=== PATIENT | male | born 1940 | race Caucasian/White ===

== ENCOUNTER 2016-12-23 14:51 | Inpatient (IN) | payer OTHER ==
[2016-12-23 14:57] VITALS: BMI 30.9
--- NOTE | 2016-12-23 15:12 | PDOC ---
History of Present Illness <Tom Guthrie - Last Filed: 12/23/16 15:10> - General History Source: Patient Exam Limitations: No Limitations - History of Present Illness Initial Comments: 12/23/16 15:30 Patient is a 76 year old male with pmhx of HTN, HLD and heart stent who presents to the ED with abdominal pain and nausea. Patient states that he woke up in the morning and started experiencing abdominal pain at the left sided abdomen, radiating to the left flank, 8/10 in severity. Patient reports normal bowel movement today. Patient notes that he did not take anything for the pain. He denies any past abd sx. <Kayy Erwin - Last Filed: 12/23/16 16:40> <Ana Mckay - Last Filed: 12/23/16 20:18> - General Chief Complaint: Pain, Acute Stated Complaint: ABD PAIN Time Seen by Provider: 12/23/16 15:10 Past History - Past Medical History Cardiac Disorders: Yes (STENTSX2) HTN: Yes Hypercholesterolemia: Yes - Surgical History Cardiac Surgery: Yes (STENTSX2) - Psycho/Social/Smoking Cessation Hx Suicidal Ideation: No Smoking History: Former smoker Have you smoked in the past 12 months: No Information on smoking cessation initiated: No <Tom Guthrie - Last Filed: 12/23/16 15:10> <Kayy Erwin - Last Filed: 12/23/16 16:40> <Ana Mckay - Last Filed: 12/23/16 20:18> - Past Medical History Allergies/Adverse Reactions: Allergies Allergy/AdvReac Type Severity Reaction Status Date / Time No Known Allergies Allergy Verified 12/23/16 14:53 Home Medications: Ambulatory Orders Unobtainable [Unobtainable] 12/23/16 Review of Systems - Review of Systems Able to Perform ROS?: Yes Comments:: 12/23/16 15:30 GENERAL/CONSTITUTIONAL: No fever or chills. No weakness. HEAD, EYES, EARS, NOSE AND THROAT: No change in vision. No ear pain or discharge. No sore throat. CARDIOVASCULAR: No chest pain or shortness of breath. RESPIRATORY: No cough, wheezing, or hemoptysis. GASTROINTESTINAL: +abdominal pain, nausea. No vomiting, diarrhea or constipation. GENITOURINARY: +left flank pain. No dysuria, frequency, or change in urination. MUSCULOSKELETAL: No joint or muscle swelling or pain. No neck or back pain. SKIN: No rash NEUROLOGIC: No headache, vertigo, loss of consciousness, or change in strength/ sensation. ENDOCRINE: No increased thirst. No abnormal weight change. HEMATOLOGIC/LYMPHATIC: No anemia, easy bleeding, or history of blood clots. ALLERGIC/IMMUNOLOGIC: No hives or skin allergy. <Kayy Erwin - Last Filed: 12/23/16 16:40> *Physical Exam - Vital Signs Last Vital Signs Temp Pulse Resp BP Pulse Ox 98.3 F 74 19 147/77 97 12/23/16 14:53 12/23/16 14:53 12/23/16 14:53 12/23/16 14:53 12/23/16 14:53 <Tom Guthrie - Last Filed: 12/23/16 15:10> - Vital Signs Last Vital Signs Temp Pulse Resp BP Pulse Ox 98.3 F 74 19 147/77 97 12/23/16 14:53 12/23/16 14:53 12/23/16 14:53 12/23/16 14:53 12/23/16 14:53 - Physical Exam Comments: 12/23/16 15:31 GENERAL: Awake, alert, and fully oriented, in no acute distress HEAD: No signs of trauma EYES: PERRLA, EOMI, sclera anicteric, conjunctiva clear ENT: Auricles normal inspection, hearing grossly normal, nares patent, oropharynx clear without exudates. Moist mucosa NECK: Normal ROM, supple, no lymphadenopathy, JVD, or masses LUNGS: Breath sounds equal, clear to auscultation bilaterally. No wheezes, and no crackles HEART: Regular rate and rhythm, normal S1 and S2, no murmurs, rubs or gallops ABDOMEN: +left sided rebounded tenderness with involuntary guarding. Soft, normoactive bowel sounds. EXTREMITIES: Normal range of motion, no edema. No clubbing or cyanosis. No cords, erythema, or tenderness NEUROLOGICAL: Cranial nerves II through XII grossly intact. Normal speech, normal gait SKIN: Warm, Dry, normal turgor, no rashes or lesions noted. <Kayy Erwin - Last Filed: 12/23/16 16:40> - Vital Signs Last Vital Signs Temp Pulse Resp BP Pulse Ox 98.3 F 74 19 147/77 97 12/23/16 14:53 12/23/16 14:53 12/23/16 14:53 12/23/16 14:53 12/23/16 14:53 <MckayAna - Last Filed: 12/23/16 20:18> Heart Score/ECG Review #1 12/23/16 15:40 Impression: Sinus rhythm with 1st degree AV block Cannot rule out Anterior infarct Vent rate 68 bpm <Kayy Erwin - Last Filed: 12/23/16 16:40> ED Treatment Course - LABORATORY CBC & Chemistry Diagram: 12/23/16 15:20 12/23/16 15:20 <Kayy Erwin - Last Filed: 12/23/16 16:40> - LABORATORY CBC & Chemistry Diagram: 12/23/16 15:20 12/23/16 15:20 - ADDITIONAL ORDERS Additional order review: Laboratory Results 12/23/16 12/23/16 15:20 15:20 Sodium 140 Potassium 4.7 Chloride 104 Carbon Dioxide 28 Anion Gap 8 BUN 14 Creatinine 1.1 Creat Clearance w eGFR > 60 Random Glucose 91 Calcium 9.3 Total Bilirubin 0.4 AST 34 ALT 50 Alkaline Phosphatase 79 Total Protein 7.1 Albumin 4.0 Lipase 148 Urine Color Straw Urine Appearance Clear Urine pH 6.0 Urine Protein Negative Urine Glucose (UA) Negative Urine Ketones Negative Urine Blood 1+ H Urine Nitrite Negative Urine Bilirubin Negative Urine Urobilinogen Negative Ur Leukocyte Esterase Negative Urine RBC 2 Urine WBC <1 Urine Mucus Rare 12/23/16 15:20 RBC 5.03 MCV 91.8 MCHC 33.3 RDW 12.3 MPV 11.2 H Neutrophils % 70.4 Lymphocytes % 16.2 Monocytes % 9.9 Eosinophils % 2.7 Basophils % 0.8 - Medications Given in the ED: ED Medications Discontinued Medications Generic Name Dose Route Start Last Admin Trade Name Freq PRN Reason Stop Dose Admin Sodium Chloride 1,000 mls @ 1,000 mls/hr 12/23/16 15:26 12/23/16 15:38 Normal Saline - IV 12/23/16 16:25 1,000 mls/hr ASDIR STA Administration Morphine Sulfate 4 mg 12/23/16 15:26 12/23/16 15:38 Morphine Injection - IVPUSH 12/23/16 15:27 4 mg ONCE ONE Administration Ondansetron HCl 4 mg 12/23/16 15:26 12/23/16 15:37 Zofran Injection IVPUSH 12/23/16 15:27 4 mg ONCE ONE Administration <Ana Mckay - Last Filed: 12/23/16 20:18> Medical Decision Making - Medical Decision Making 12/23/16 16:20 76 yo male with pmhx of htn, hld, heart stent who presents with left sided abdominal pain and flank pain since this morning. Patient has no prior hx of kidney stones or abd sx. Plan: Labs Meds CT of abdomen and pelvis w/ contrast 12/23/16 16:40 Patient is unsure of his medication, tried contacting his pharmacy, [facility] in the [place] twice with no response. <Kayy Erwin - Last Filed: 12/23/16 16:40> - Medical Decision Making 12/23/16 20:06 THIS IS A PRELIMINARY REPORT FROM [facility] EXAM: CT abdomen and pelvis with intravenous and oral contrast IMAGES: 1009 EXAM DATE AND TIME: 2016-12-23 18:12:45 REASON FOR EXAM: Acute diverticulitis COMPARISON: None. FINDINGS: There is dependent and subsegmental atelectasis at the lung bases Fatty liver The upper abdominal visceral organs are otherwise unremarkable There is a small infrarenal abdominal aortic aneurysm measuring 2.8 x 2.5 cm axially There is no bowel obstruction or distention Normal appendix Colonic diverticulosis, predominantly left colon with mild inflammatory changes about the distal descending colon compatible with early or mild acute diverticulitis No evidence of diverticular abscess No free air or free fluid Bilateral inguinal hernias containing fat THIS DOCUMENT HAS BEEN ELECTRONICALLY SIGNED Pt remains with moderate to severe LLQ pain with palpation. He has no pain when he lies still. He has mild rebound. His PMD doesn't come to this hospital. He will be admitted for diverticulitis to the hospitalist team. 12/23/16 20:17 Admitting team is requesting levaquin and flagyl; I will not give levaquin due to multiple Black Box warnings; now requesting ceftriaxone flagyl. <Ana Mckay - Last Filed: 12/23/16 20:18> *DC/Admit/Observation/Transfer - Attestations Physician Attestion: 12/23/16 15:11 I, Dr. Tom Guthrie, attest that this document has been prepared under my direction and personally reviewed by me in its entirety. I further attest, that it accurately reflects all work, treatment, procedures and medical decision -making performed by me. <Tom Guthrie - Last Filed: 12/23/16 15:10> - Attestations Scribe Attestion: 12/23/16 15:32 Documentation prepared by KARINA Coley, acting as medical transcription for Tom Guthrie DO. <Kayy Erwin - Last Filed: 12/23/16 16:40> - Discharge Dispostion Admit: Yes <Ana Mckay - Last Filed: 12/23/16 20:18> Diagnosis at time of Disposition: Diverticulitis, LLQ abdominal pain, Abdominal aortic aneurysm - Discharge Dispostion Condition at time of disposition: Guarded - Referrals Referrals: Felice Man MD [Non Staff, Medical] -
[2016-12-23] MEDS ORDERED: SODIUM CHLORIDE 1,000 ML IV STA (15:26)
[2016-12-23] MEDS ORDERED: morphine CARPU-JECT 4 MG/1 ML DISP.SYRIN IVPUSH ONE (15:26)
[2016-12-23] MEDS ORDERED: ONDANSETRON 4 MG/2 ML VIAL IVPUSH ONE (15:26)
[2016-12-23 15:29] LABS: BASOPHIL 0.8 % (0-2.0); EOSINOPHIL 2.7 % (0-4.5); MCH 30.5 pg (25.7-33.7); MCHC 33.3 g/dl (32.0-35.9); MEAN CELL VOLUME 91.8 fl (80-96); MEAN PLT VOLUME 11.2 fl (7.5-11.1); NEUTROPHILS 70.4 % (42.8-82.8); PLATELET COUNT 140 K/MM3 (134-434); RDW 12.3 % (11.9-15.9); WHITE BLOOD COUNT 13.4 K/mm3 (4.0-10.0)
[2016-12-23] MEDS ORDERED: ONDANSETRON 4 MG/2 ML VIAL ONE (15:30)
[2016-12-23] MEDS ORDERED: morphine CARPU-JECT 4 MG/1 ML DISP.SYRIN ONE (15:30)
[2016-12-23 15:33] LABS: URINE APPEARANCE CLEAR; URINE BILIRUBIN NEGATIVE (NEGATIVE); URINE BLOOD 1+ (NEGATIVE); URINE COLOR STRAW; URINE GLUCOSE (UA) NEGATIVE (NEGATIVE); URINE KETONE NEGATIVE (NEGATIVE); URINE LEUK ESTERASE NEGATIVE (NEGATIVE); URINE NITRITE NEGATIVE (NEGATIVE); URINE PROTEIN NEGATIVE (NEGATIVE); URINE UROBILINOGEN NEGATIVE mg/dL (0.2-1.0)
[2016-12-23 15:37] LABS: URINE MUCUS RARE; URINE RBC 2 /hpf (0-3); URINE WBC <1 /hpf (3-5)
[2016-12-23 15:55] LABS: ANION GAP 8 (8-16); BILIRUBIN,TOTAL 0.4 mg/dL (0.2-1.0); CALCIUM 9.3 mg/dL (8.5-10.1); CO2 28 mmol/L (21-32); CREATININE 1.1 mg/dL (0.7-1.3); GLUCOSE,RANDOM 91 mg/dL (74-106); SGOT/AST 34 U/L (15-37); SGPT/ALT 50 U/L (12-78); TOT PROT 7.1 g/dl (6.4-8.2)
[2016-12-23 15:56] LABS: ALK PHOS 79 U/L (45-117)
[2016-12-23] MEDS ORDERED: AMPICILLIN NA/SULBACTAM NA 1.5 GM in SODIUM CHLORIDE 100 ML IVPB ONE (19:22)
[2016-12-23] MEDS ORDERED: MAG HYDROX/AL HYDROX/SIMETH 30 ML UNIT-DOSE CUP PO ONE (20:03)
[2016-12-23] MEDS ORDERED: FAMOTIDINE 20 MG/50 ML IVPB 50 ML IVPB ONE ×2 (20:03→20:23)
[2016-12-23] MEDS ORDERED: KETOROLAC TROMETHAMINE 30 MG/1 ML VIAL IVPUSH ONE (20:03)
[2016-12-23] MEDS ORDERED: ZOLPIDEM TARTRATE 5 MG TABLET PO ONE (20:15)
[2016-12-23] MEDS ORDERED: METRONIDAZOLE 500 MG PREMIXED 100 ML IVPB ONE ×2 (20:17→20:49)
[2016-12-23] MEDS ORDERED: CEFTRIAXONE 1 GM in DEXTROSE 5%-WATER - 50 ML IVPB ONE (20:17)
[2016-12-23] MEDS ORDERED: KETOROLAC TROMETHAMINE 30 MG/1 ML VIAL ONE (20:23)
[2016-12-23] MEDS ORDERED: MAG HYDROX/AL HYDROX/SIMETH 30 ML UNIT-DOSE CUP ONE (20:23)
[2016-12-23] MEDS ORDERED: morphine CARPU-JECT 2 MG/1 ML DISP.SYRIN IVPUSH PRN (20:32)
--- NOTE | 2016-12-23 20:44 | HP ---
CHIEF COMPLAINT: LLQ abdominal pain PCP: Arnav You HISTORY OF PRESENT ILLNESS: Patient is a 54 year old male with a PMHx of HTN and HLD who complains of left lower quadrant abdominal pain that started this morning after waking up from sleep. Patient describes the pain as sharp, nonradiating, and constant associated with bloating. Pain is exacerbated by any type of movement with a severity of 9/10 and alleviated when laying down. Patient states he did not take any over the counter medications for the pain and would just wait for the pain to go away. Patient then states the pain intensified at approximately 13: 00, which prompted this hospital visit and was brought in by his daughter and . Patient states he has never experienced similar pain in the past and denies any NSAID use. Denies any recent travel or change in diet. Otherwise, patient denies any nausea, vomiting, diarrhea, constipation, changes in bowel habits, hematuria, melena, dysuria, urinary frequency or urgency, flank pain, shortness of breath, chest pain, palpitations. Patient reports having a colonoscopy 2-3 years ago and was told everything was ok and to return in 10 years. ER course was notable for: (1) Abdomen/Pelvis CT revealed mild diverticulitis (2) Morphine, Ceftriaxone, flagyl (3) Pepcid, Mylanta, Toradol, Zosyn Recent Travel: Denies PAST MEDICAL HISTORY: HTN, HLD, CAD PAST SURGICAL HISTORY: Cardiac stent x1 (1995) Social History: Smoking:Former Smoker (Quit 1995). Used to smoke 1 PPD for 30+ years Alcohol: 2 shots of Vodka only on Saturday nights. Drugs: Denies Family History: Denies Allergies: No Known Allergies Allergy (Verified 12/23/16 14:53) HOME MEDICATIONS: Home Medications Medication Instructions Recorded Unobtainable [Unobtainable] 12/23/16 REVIEW OF SYSTEMS Constitutional: Denies loss of appetite, weight loss or weight gain, fever, chills HEENT: Denies throat pain, difficulty swallowing, visual changes, dizziness CARDIOVASCULAR: Denies chest pain, syncope, palpitations, lightheadedness, peripheral edema RESPIRATORY: Denies cough or shortness of breath, GASTROINTESTINAL: Abdominal pain, abdominal distension. Denies nausea, vomiting , diarrhea, constipation, melena, hematochezia GENITOURINARY: Denies dysuria, frequency, urgency, hesitancy, hematuria, flank pain, genital pain MUSCULOSKELETAL: Denies back pain SKIN: Denies rash, itching, pallor HEMATOLOGIC/IMMUNOLOGIC: Denies frequent infections ENDOCRINE: Denies unexplained weight gain, unexplained weight loss, heat intolerance, cold intolerance NEUROLOGIC: Denies headache, focal weakness, dizziness, bladder or bowel incontinence PSYCHIATRIC: Denies anxiety, depression, suicidal or homicidal ideation, hallucinations. PHYSICAL EXAMINATION Vital Signs - 24 hr 12/23/16 14:53 Temperature 98.3 F Pulse Rate 74 Respiratory 19 Rate Blood Pressure 147/77 O2 Sat by Pulse 97 Oximetry (%) GENERAL: Awake, alert, and fully oriented, in no acute distress. HEAD: Normal with no signs of trauma. EYES: Sclera anicteric, conjunctiva clear. EARS, NOSE, THROAT: Oropharynx clear without exudates. Moist mucous membranes. NECK: Normal range of motion, supple without lymphadenopathy, JVD, or masses. LUNGS: Breath sounds equal, clear to auscultation bilaterally. No wheezes, and no crackles. No accessory muscle use. HEART: Regular rate and rhythm, normal S1 and S2 without murmur, rub or gallop. ABDOMEN: Soft, severe left lower quadrant tenderness to palpation. No guarding, no rebound. No liver nodularity or or masses, no splenomegaly. (-) Colgate sign MUSCULOSKELETAL: No CVA tenderness. UPPER EXTREMITIES: No peripheral edema. LOWER EXTREMITIES: No calf tenderness. No peripheral edema. NEUROLOGICAL: No facial droop. Normal speech. PSYCHIATRIC: Cooperative. Good eye contact. Appropriate mood and affect. SKIN: Warm, dry, normal turgor, no rashes or lesions noted, normal capillary refill. Laboratory Results - last 24 hr 12/23/16 12/23/16 12/23/16 15:20 15:20 15:20 WBC 13.4 H RBC 5.03 Hgb 15.4 Hct 46.2 MCV 91.8 MCH 30.5 MCHC 33.3 RDW 12.3 Plt Count 140 MPV 11.2 H Neutrophils % 70.4 Lymphocytes % 16.2 Monocytes % 9.9 Eosinophils % 2.7 Basophils % 0.8 Sodium 140 Potassium 4.7 Chloride 104 Carbon Dioxide 28 Anion Gap 8 BUN 14 Creatinine 1.1 Creat Clearance w eGFR > 60 Random Glucose 91 Calcium 9.3 Total Bilirubin 0.4 AST 34 ALT 50 Alkaline Phosphatase 79 Total Protein 7.1 Albumin 4.0 Lipase 148 Urine Color Straw Urine Appearance Clear Urine pH 6.0 Urine Protein Negative Urine Glucose (UA) Negative Urine Ketones Negative Urine Blood 1+ H Urine Nitrite Negative Urine Bilirubin Negative Urine Urobilinogen Negative Ur Leukocyte Esterase Negative Urine RBC 2 Urine WBC <1 Urine Mucus Rare IMAGES: CT Abdomen/Pelvis (12/23/16): There is dependent and subsegmental atelectasis at the lung bases. Fatty liver. The upper abdominal visceral organs are otherwise unremarkable. There is a small infrarenal abdominal aortic aneurysm measuring 2.8 x 2.5 cm axially. There is no bowel obstruction or distention Normal appendix. Colonic diverticulosis, predominantly left colon with mild inflammatory changes about the distal descending colon compatible with early or mild acute diverticulitis. No evidence of diverticular abscess. No free air or free fluid. Bilateral inguinal hernias containing fat ASSESSMENT/PLAN: Patient is a 76 year old male with a PMHx of HTN, HLD, CAD x1 stent who presented for left lower quadrant pain and CT abdomen revealed diverticulitis. Patient admitted for further monitoring and management. Acute Diverticulitis -CT abdomen reveals mild diverticulitis -WBC >13,000 with moderate abdominal pain -IV Normal Saline @75mls/hr -IV antibiotics Flagyl 500mg Q8H and Ceftriaxone 1gm daily -Morphine 2mg Q4H PRN -NPO for bowel rest HTN -Controlled at home with Lisinopril 10mg daily -Continue to monitor BP HLD -Controlled at home with Simvastatin 20mg daily CAD s/p Cardiac Stent x1 -Continue Aspirin 81mg daily F/E/N -IV NS @75mls/hr -Electrolytes wnl -NPO Prophylaxis -Heparin 5000 units SQ Q8H -No GI required Disposition -Full code -Admit to med/surg and will continue IV abx with bowel rest -Deconditioning: PT daily
--- NOTE | 2016-12-23 20:45 | PN ---
Teaching Attending Note Name of Resident: Callie Jackson ATTENDING PHYSICIAN STATEMENT I saw and evaluated the patient. I reviewed the resident's note and discussed the case with the resident. I agree with the resident's findings and plan as documented. SUBJECTIVE: 76 yo M with pmhx of HTN, HLD CAd s/p stent who presents woth abdominal pain. States pain is located on the left and goes to the left flank. Pain level is described as bieng 8/10 with no alleviation. OBJECTIVE: Physical: VS: Vital Signs Period Temp Pulse Resp BP Sys/Bhagat Pulse Ox Last 24 Hr 98.3 F 74 19 147/77 97 GEN: NAD, Resting in bed HEENT: NCAT, PERRL, throat without erythema or exudates CARD: RRR S1,S2 ABD: BSX4, LL Quadrant tender to palpation EXT: - C/C/E CBCD WBC 13.4 K/mm3 (4.0-10.0) H 12/23/16 15:20 RBC 5.03 M/mm3 (4.00-5.60) 12/23/16 15:20 Hgb 15.4 GM/dL (11.7-16.9) 12/23/16 15:20 Hct 46.2 % (35.4-49) 12/23/16 15:20 MCV 91.8 fl (80-96) 12/23/16 15:20 MCHC 33.3 g/dl (32.0-35.9) 12/23/16 15:20 RDW 12.3 % (11.9-15.9) 12/23/16 15:20 Plt Count 140 K/MM3 (134-434) 12/23/16 15:20 MPV 11.2 fl (7.5-11.1) H 12/23/16 15:20 CMP Sodium 140 mmol/L (136-145) 12/23/16 15:20 Potassium 4.7 mmol/L (3.5-5.1) 12/23/16 15:20 Chloride 104 mmol/L (98-107) 12/23/16 15:20 Carbon Dioxide 28 mmol/L (21-32) 12/23/16 15:20 Anion Gap 8 (8-16) 12/23/16 15:20 BUN 14 mg/dL (7-18) 12/23/16 15:20 Creatinine 1.1 mg/dL (0.7-1.3) 12/23/16 15:20 Creat Clearance w eGFR > 60 (>60) 12/23/16 15:20 Random Glucose 91 mg/dL (74-106) 12/23/16 15:20 Calcium 9.3 mg/dL (8.5-10.1) 12/23/16 15:20 Total Bilirubin 0.4 mg/dL (0.2-1.0) 12/23/16 15:20 AST 34 U/L (15-37) 12/23/16 15:20 ALT 50 U/L (12-78) 12/23/16 15:20 Alkaline Phosphatase 79 U/L (45-117) 12/23/16 15:20 Total Protein 7.1 g/dl (6.4-8.2) 12/23/16 15:20 Albumin 4.0 g/dl (3.4-5.0) 12/23/16 15:20 Home Medications Medication Instructions Recorded Unobtainable [Unobtainable] 12/23/16 CT ABD/PELVIS: Mild Early Acute Diverticulitis ASSESSMENT AND PLAN: 76 YO M with Pmhx of HTN, HLD, and CAD s/p stents who presents with abdominal pain and nausea, found to have acute diverticulitis 1.) Acute Diverticulitis - Ceftriaxone/Flagyl - IVF - NPO - Zofran prn nausea 2.) HTN - C/W Home Medd 3.) Hld - C/W Statin 4.) DVT Ppx - Heparin 5000 q 8
[2016-12-23] MEDS ORDERED: CEFTRIAXONE 50 ML ONE (20:48)
[2016-12-23] MEDS: SODIUM CHLORIDE 1,000 ML IV SCH (22:01)
[2016-12-23] MEDS ORDERED: ZOLPIDEM TARTRATE 5 MG TABLET ONE (22:09)
[2016-12-24] MEDS: HEPARIN NA (PORCINE) 5,000 UNITS/ML 1ML VIAL SQ SCH ×3 (01:40→17:18)
[2016-12-24] MEDS: METRONIDAZOLE 500 MG PREMIXED 100 ML IVPB SCH ×3 (01:40→17:18)
[2016-12-24 07:30] LABS: BASOPHIL 0.7 % (0-2.0); EOSINOPHIL 4.7 % (0-4.5); MCH 30.7 pg (25.7-33.7); MCHC 33.5 g/dl (32.0-35.9); MEAN CELL VOLUME 91.4 fl (80-96); MEAN PLT VOLUME 11.3 fl (7.5-11.1); NEUTROPHILS 53.9 % (42.8-82.8); PLATELET COUNT 116 K/MM3 (134-434); RDW 12.4 % (11.9-15.9); WHITE BLOOD COUNT 8.1 K/mm3 (4.0-10.0)
[2016-12-24] MEDS ORDERED: PNEUMOC 13-VAL CONJ-DIP CRM/PF 0.5 ML DISP.SYRIN IM ONE (08:00)
[2016-12-24] MEDS ORDERED: DEXTROSE 5%-WATER - 50 ML IVPB ONE (08:58)
[2016-12-24] MEDS ORDERED: cefTRIAXone SODIUM 1 GM VIAL ONE (08:58)
[2016-12-24] MEDS: CEFTRIAXONE 1 GM in DEXTROSE 5%-WATER - 50 ML IVPB SCH (09:05)
[2016-12-24] MEDS: LISINOPRIL 10 MG TABLET (FP) PO SCH (09:06)
[2016-12-24] MEDS: SODIUM CHLORIDE 1,000 ML IV SCH (10:37)
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
--- NOTE | 2016-12-24 15:15 | PN ---
Physical Exam: SUBJECTIVE: Patient seen and examined Patient is comfortable with no acute distress, No fever or chills. Family at bedside. OBJECTIVE: Vital Signs Temperature 97.0 F L 12/24/16 06:00 Pulse Rate 52 L 12/24/16 06:00 Respiratory Rate 20 12/24/16 09:00 Blood Pressure 110/67 12/24/16 06:00 O2 Sat by Pulse Oximetry (%) 95 12/24/16 09:00 GENERAL: The patient is awake, alert, and fully oriented, in no acute distress. HEAD: Normal with no signs of trauma. EYES: PERRL, extraocular movements intact, sclera anicteric, conjunctiva clear. ENT: Ears normal, oropharynx clear without exudates, moist mucous membranes. NECK: Trachea midline, full range of motion, supple. LUNGS: Breath sounds equal, clear to auscultation bilaterally, no wheezes, no crackles, no accessory muscle use. HEART: Regular rate and rhythm, S1, S2 without murmur, rub or gallop. ABDOMEN: Soft, mild tenderness left side ,nondistended, normoactive bowel sounds , no guarding, no rebound, no hepatosplenomegaly, no masses. EXTREMITIES: 2+ pulses, warm, well-perfused, no edema. NEUROLOGICAL: Cranial nerves II through XII grossly intact. Normal speech, gait not observed. PSYCH: Normal mood, normal affect. SKIN: Warm, dry, normal turgor, no rashes or lesions noted CBCD WBC 8.1 K/mm3 (4.0-10.0) D 12/24/16 06:00 RBC 4.53 M/mm3 (4.00-5.60) 12/24/16 06:00 Hgb 13.9 GM/dL (11.7-16.9) 12/24/16 06:00 Hct 41.4 % (35.4-49) 12/24/16 06:00 MCV 91.4 fl (80-96) 12/24/16 06:00 MCHC 33.5 g/dl (32.0-35.9) 12/24/16 06:00 RDW 12.4 % (11.9-15.9) 12/24/16 06:00 Plt Count 116 K/MM3 (134-434) L 12/24/16 06:00 MPV 11.3 fl (7.5-11.1) H 12/24/16 06:00 CMP Sodium 140 mmol/L (136-145) 12/23/16 15:20 Potassium 4.7 mmol/L (3.5-5.1) 12/23/16 15:20 Chloride 104 mmol/L (98-107) 12/23/16 15:20 Carbon Dioxide 28 mmol/L (21-32) 12/23/16 15:20 Anion Gap 8 (8-16) 12/23/16 15:20 BUN 14 mg/dL (7-18) 12/23/16 15:20 Creatinine 1.1 mg/dL (0.7-1.3) 12/23/16 15:20 Creat Clearance w eGFR > 60 (>60) 12/23/16 15:20 Random Glucose 91 mg/dL (74-106) 12/23/16 15:20 Calcium 9.3 mg/dL (8.5-10.1) 12/23/16 15:20 Total Bilirubin 0.4 mg/dL (0.2-1.0) 12/23/16 15:20 AST 34 U/L (15-37) 12/23/16 15:20 ALT 50 U/L (12-78) 12/23/16 15:20 Alkaline Phosphatase 79 U/L (45-117) 12/23/16 15:20 Total Protein 7.1 g/dl (6.4-8.2) 12/23/16 15:20 Albumin 4.0 g/dl (3.4-5.0) 12/23/16 15:20 Active Medications Generic Name Dose Route Start Last Admin Trade Name Daniella PRN Reason Stop Dose Admin Atorvastatin Calcium 10 mg 12/24/16 22:00 Lipitor - PO HS SAL Heparin Sodium (Porcine) 5,000 unit 12/24/16 02:00 12/24/16 09:05 Heparin - SQ 5,000 unit Q8H-IV SAL Administration Sodium Chloride 1,000 mls @ 75 mls/hr 12/23/16 20:45 12/24/16 10:37 Normal Saline - IV 12/25/16 10:04 75 mls/hr ASDIR SAL Administration Ceftriaxone Sodium 1 gm/ 50 mls @ 100 mls/hr 12/24/16 10:00 12/24/16 09:05 Dextrose IVPB 100 mls/hr DAILY SAL Administration Metronidazole 100 mls @ 100 mls/hr 12/24/16 02:00 12/24/16 10:35 Flagyl 500mg Premixed Ivpb - IVPB 100 mls/hr Q8H-IV SAL Administration Lisinopril 10 mg 12/24/16 10:00 12/24/16 09:06 Prinivil PO 10 mg DAILY SAL Administration Morphine Sulfate 2 mg 12/23/16 20:32 Morphine Injection - IVPUSH Q4H PRN PAIN Home Medications Medication Instructions Recorded Lisinopril 10 mg PO DAILY 12/23/16 Simvastatin 20 mg PO HS 12/23/16 CT Abdomen/Pelvis (12/23/16): There is dependent and subsegmental atelectasis at the lung bases. Fatty liver. The upper abdominal visceral organs are otherwise unremarkable. There is a small infrarenal abdominal aortic aneurysm measuring 2.8 x 2.5 cm axially. There is no bowel obstruction or distention Normal appendix. Colonic diverticulosis, predominantly left colon with mild inflammatory changes about the distal descending colon compatible with early or mild acute diverticulitis. No evidence of diverticular abscess. No free air or free fluid. Bilateral inguinal hernias containing fat ASSESSMENT/PLAN: Patient is a 76 year old male with a PMHx of HTN, HLD, CAD x1 stent who presented for left lower quadrant pain and CT abdomen revealed diverticulitis. Patient admitted for further monitoring and management. 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 #HTN continue Lisinopril # HLD continue home Simvastatin 20mg daily # CAD s/p Cardiac Stent x1 continue Aspirin 81mg daily DVT Prophylaxis: -Heparin 5000 units SQ Q8H Visit type - Emergency Visit Emergency Visit: Yes ED Registration Date: 12/23/16 Care time: The patient presented to the Emergency Department on the above date and was hospitalized for further evaluation of their emergent condition. - New Patient This patient is new to me today: Yes Date on this admission: 12/24/16 - Critical Care Critical Care patient: No
[2016-12-24] MEDS ORDERED: ATORVASTATIN CA 10 MG TABLET (FP) PO SCH (22:00)
--- NOTE | 2016-12-24 22:15 | EKG ---
Test Reason : Blood Pressure : / mmHG Vent. Rate : 068 BPM Atrial Rate : 068 BPM P-R Int : 228 ms QRS Dur : 102 ms QT Int : 398 ms P-R-T Axes : 042 -02 051 degrees QTc Int : 423 ms SINUS RHYTHM WITH 1ST DEGREE A-V BLOCK NO PREVIOUS ECGS AVAILABLE Confirmed by JHONNY AMIN MD ([id number]) on 12/24/2016 10:15:32 PM Referred By: Confirmed By:JHONNY AMIN MD
[2016-12-25] MEDS: METRONIDAZOLE 500 MG PREMIXED 100 ML IVPB SCH ×2 (01:26→10:30)
[2016-12-25] MEDS: HEPARIN NA (PORCINE) 5,000 UNITS/ML 1ML VIAL SQ SCH ×2 (01:26→10:29)
[2016-12-25 07:55] LABS: BASOPHIL 0.8 % (0-2.0); EOSINOPHIL 3.7 % (0-4.5); MCH 30.6 pg (25.7-33.7); MCHC 33.6 g/dl (32.0-35.9); MEAN CELL VOLUME 91.1 fl (80-96); MEAN PLT VOLUME 11.7 fl (7.5-11.1); NEUTROPHILS 58.8 % (42.8-82.8); PLATELET COUNT 128 K/MM3 (134-434); RDW 12.3 % (11.9-15.9); WHITE BLOOD COUNT 8.1 K/mm3 (4.0-10.0)
[2016-12-25 08:38] LABS: ANION GAP 8 (8-16); CALCIUM 8.6 mg/dL (8.5-10.1); CO2 28 mmol/L (21-32); GLUCOSE,RANDOM 85 mg/dL (74-106)
[2016-12-25 08:40] LABS: C-REACTIVE PROTEIN 3.4 MG/DL (0.00-0.3)
[2016-12-25] MEDS ORDERED: ASPIRIN COATED 81 MG TABLET.EC PO SCH (10:00)
[2016-12-25] MEDS ORDERED: PT OWN MED DRAWER 7, Y5N ONE (10:24)
[2016-12-25] MEDS ORDERED: DEXTROSE 5%-WATER - 50 ML IVPB ONE (10:25)
[2016-12-25] MEDS ORDERED: cefTRIAXone SODIUM 1 GM VIAL ONE (10:25)
[2016-12-25] MEDS: CEFTRIAXONE 1 GM in DEXTROSE 5%-WATER - 50 ML IVPB SCH (10:29)
[2016-12-25] MEDS: LISINOPRIL 10 MG TABLET (FP) PO SCH (10:30)
[2016-12-25 11:42] VITALS: BP 124/69; PULSE 56; TEMP 97.7
--- NOTE | 2016-12-25 11:58 | DS ---
Physical Exam: SUBJECTIVE: Patient seen and examined. Overnight, pt has had no complaints. This am, pt reports that his abdominal pain has decreased to 4/10. He denies fevers, chills, nausea, emesis, and constipation. He states that he had 2 episodes of non-bloody, watery diarrhea since yesterday. OBJECTIVE: Vital Signs Period Temp Pulse Resp BP Sys/Bhagat Pulse Ox Last 24 Hr 97.1 F-98.1 F 54-58 18-20 114-124/58-72 95 PHYSICAL EXAM GENERAL: The patient is awake, alert, and fully oriented, in no acute distress. HEAD: Normal with no signs of trauma. EYES: PERRL, extraocular movements intact, sclera anicteric, conjunctiva clear. ENT: Ears normal, nares patent, oropharynx clear without exudates, moist mucous membranes. NECK: Trachea midline, full range of motion, supple. LUNGS: Breath sounds equal, clear to auscultation bilaterally, no wheezes, no crackles, no accessory muscle use. HEART: Regular rate and rhythm, S1, S2 without murmur, rub or gallop. ABDOMEN: Soft, minimally tender in LLQ, nondistended, hyperactive bowel sounds, no guarding, no rebound, no hepatosplenomegaly, no masses. EXTREMITIES: 2+ pulses, warm, well-perfused, no edema. NEUROLOGICAL: Cranial nerves II through XII grossly intact. Normal speech, gait not observed. PSYCH: Normal mood, normal affect. SKIN: Warm, dry, normal turgor, no rashes or lesions noted. LABS Laboratory Results - last 24 hr 12/25/16 12/25/16 06:00 06:00 WBC 8.1 RBC 4.63 Hgb 14.2 Hct 42.2 MCV 91.1 MCH 30.6 MCHC 33.6 RDW 12.3 Plt Count 128 L MPV 11.7 H Neutrophils % 58.8 Lymphocytes % 26.7 Monocytes % 10.0 Eosinophils % 3.7 Basophils % 0.8 Sodium 142 Potassium 4.1 Chloride 106 Carbon Dioxide 28 Anion Gap 8 BUN 10 D Creatinine 1.0 Random Glucose 85 Calcium 8.6 C-Reactive Protein 3.[address] Abdomen/pelvis: mild diverticulitis of descending colon, small infrarenal abdominal aortic aneurysm of 2.8 x 2.5cm, and fatty liver. HOSPITAL COURSE: Mr. Levi is a 76M with a history of HTN, HLD, and CAD (1 stent) who presented with LLQ abdominal pain and was found to have a wbc count of 13 and evidence of mild diverticulitis on CT (also showed small infrarenal abdominal aortic aneurysm of 2.8 x 2.5cm). He was treated with flagyl, ceftriaxone, morphine for pain control, fluids, and we continued his home meds. His diet was advanced as tolerated. Today, pt has no more leukocytosis, his vitals are stable , his LLQ has dramatically improved, he is tolerating PO, and he is ready for discharge. Date of Admission:12/23/16 Date of Discharge: 12/25/16 <Shubham Le - Last Filed: 12/25/16 11:48> Physical Exam: SUBJECTIVE: Patient seen and examined Patient is being discharged on oral antibiotics for 5 more days ceftin and Flagyl Minutes to complete discharge: 45 <Ronald Parnell - Last Filed: 12/27/16 08:54> Discharge Summary Reason For Visit: LEFT LOWER QUADRANT PAIN,DIVERTICULITIS OF INTESTI Current Active Problems Abdominal aortic aneurysm (Acute) Diverticulitis (Acute) LLQ abdominal pain (Acute) - Home Medications Comprehensive Discharge Medication List: Ambulatory Orders Lisinopril 10 mg PO DAILY 12/23/16 Simvastatin 20 mg PO HS 12/23/16 Aspirin Coated [Ecotrin -] 81 mg PO DAILY #30 tab 12/25/16 Cefuroxime Axetil [Ceftin -] 500 mg PO BID #10 tablet 12/25/16 Metronidazole [Flagyl -] 500 mg PO TID #15 tablet 12/25/16 <Shubham Le - Last Filed: 12/25/16 11:48> - Home Medications Comprehensive Discharge Medication List: Ambulatory Orders Lisinopril 10 mg PO DAILY 12/23/16 Simvastatin 20 mg PO HS 12/23/16 Aspirin Coated [Ecotrin -] 81 mg PO DAILY #30 tab 12/25/16 Cefuroxime Axetil [Ceftin -] 500 mg PO BID #10 tablet 12/25/16 Metronidazole [Flagyl -] 500 mg PO TID #15 tablet 12/25/16 <Ronald Parnell - Last Filed: 12/27/16 08:54> Condition: Improved - Instructions Diet, Activity, Other Instructions: You were found to have diverticulitis which is an infection of diverticulosis. In the hospital, you were given IV antibiotics to help resolve the infection. At home, continue to take antibiotics for 5 more days. In terms of diet, avoid foods with high fiber content. Drink plenty of liquids. Follow up with your PCP within one week. Also, follow up with a GI doctor in the next 3 weeks. Referrals: Arnav You [Primary Care Provider] - Slim Stone MD [Staff Physician] - Felice Man MD [Non Staff, Medical] - Disposition: HOME This patient is new to me today: Yes Date on this admission: 12/25/16 Emergency Visit: Yes ED Registration Date: 12/23/16 Care time: The patient presented to the Emergency Department on the above date and was hospitalized for further evaluation of their emergent condition. Critical Care patient: No <Shubham Le - Last Filed: 12/25/16 11:48> This patient is new to me today: No Emergency Visit: Yes ED Registration Date: 12/23/16 Care time: The patient presented to the Emergency Department on the above date and was hospitalized for further evaluation of their emergent condition. Critical Care patient: No - Discharge Referral Referred to [facility] No <Ronald Parnell - Last Filed: 12/27/16 08:54>
--- NOTE | 2016-12-25 17:01 | PN ---
Teaching Attending Note Name of Resident: Shubham Le ATTENDING PHYSICIAN STATEMENT I saw and evaluated the patient. I reviewed the resident's note and discussed the case with the resident. I agree with the resident's findings and plan as documented. SUBJECTIVE: OBJECTIVE: Vital Signs Temperature 97.7 F 12/25/16 09:15 Pulse Rate 56 L 12/25/16 09:15 Respiratory Rate 18 12/25/16 09:15 Blood Pressure 124/69 12/25/16 09:15 O2 Sat by Pulse Oximetry (%) 96 12/25/16 09:00 CBCD WBC 8.1 K/mm3 (4.0-10.0) 12/25/16 06:00 RBC 4.63 M/mm3 (4.00-5.60) 12/25/16 06:00 Hgb 14.2 GM/dL (11.7-16.9) 12/25/16 06:00 Hct 42.2 % (35.4-49) 12/25/16 06:00 MCV 91.1 fl (80-96) 12/25/16 06:00 MCHC 33.6 g/dl (32.0-35.9) 12/25/16 06:00 RDW 12.3 % (11.9-15.9) 12/25/16 06:00 Plt Count 128 K/MM3 (134-434) L 12/25/16 06:00 MPV 11.7 fl (7.5-11.1) H 12/25/16 06:00 CMP Sodium 142 mmol/L (136-145) 12/25/16 06:00 Potassium 4.1 mmol/L (3.5-5.1) 12/25/16 06:00 Chloride 106 mmol/L (98-107) 12/25/16 06:00 Carbon Dioxide 28 mmol/L (21-32) 12/25/16 06:00 Anion Gap 8 (8-16) 12/25/16 06:00 BUN 10 mg/dL (7-18) D 12/25/16 06:00 Creatinine 1.0 mg/dL (0.7-1.3) 12/25/16 06:00 Creat Clearance w eGFR > 60 (>60) 12/23/16 15:20 Random Glucose 85 mg/dL (74-106) 12/25/16 06:00 Calcium 8.6 mg/dL (8.5-10.1) 12/25/16 06:00 Total Bilirubin 0.4 mg/dL (0.2-1.0) 12/23/16 15:20 AST 34 U/L (15-37) 12/23/16 15:20 ALT 50 U/L (12-78) 12/23/16 15:20 Alkaline Phosphatase 79 U/L (45-117) 12/23/16 15:20 Total Protein 7.1 g/dl (6.4-8.2) 12/23/16 15:20 Albumin 4.0 g/dl (3.4-5.0) 12/23/16 15:20 Home Medications Medication Instructions Recorded Lisinopril 10 mg PO DAILY 12/23/16 Simvastatin 20 mg PO HS 12/23/16 Aspirin Coated [Ecotrin -] 81 mg PO DAILY #30 tab 12/25/16 Cefuroxime Axetil [Ceftin -] 500 mg PO BID #10 tablet 12/25/16 Metronidazole [Flagyl -] 500 mg PO TID #15 tablet 12/25/16 CT Abdomen/Pelvis (12/23/16): There is dependent and subsegmental atelectasis at the lung bases. Fatty liver. The upper abdominal visceral organs are otherwise unremarkable. There is a small infrarenal abdominal aortic aneurysm measuring 2.8 x 2.5 cm axially. There is no bowel obstruction or distention Normal appendix. Colonic diverticulosis, predominantly left colon with mild inflammatory changes about the distal descending colon compatible with early or mild acute diverticulitis. No evidence of diverticular abscess. No free air or free fluid. Bilateral inguinal hernias containing fat ASSESSMENT/PLAN: Patient is a 76 year old male with a PMHx of HTN, HLD, CAD x1 stent who presented for left lower quadrant pain and CT abdomen revealed diverticulitis. Patient admitted for further monitoring and management. 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 #HTN continue Lisinopril # HLD continue home Simvastatin 20mg daily # CAD s/p Cardiac Stent x1 continue Aspirin 81mg daily DVT Prophylaxis: -Heparin 5000 units SQ Q8H
== END 2016-12-25 14:20 | disposition home or self-care (01) | DRG 392 ==
LOC: JER 14:51 → JERBED 20:14 → J8W 23:27
PROVIDERS: ADMIT Internal Medicine; ATTEND Internal Medicine
DX: K57.92 Diverticulitis of intestine, part unspecified, without perforation or abscess without bleeding (principal); J98.11 Atelectasis; I10 Essential (primary) hypertension; E78.5 Hyperlipidemia, unspecified; I71.4 Abdominal aortic aneurysm, without rupture; I25.10 Atherosclerotic heart disease of native coronary artery without angina pectoris; Z87.891 Personal history of nicotine dependence
CPT/HCPCS: 36415; 74177-TC; 80048; 80053; 81003; 81015; 83690; 85025; 86140; 90670; 93005; 93010; 97116-GP; 97161-GP; 99284-25; J1644